=== PATIENT | female | born 1945 | race Caucasian/White ===

== ENCOUNTER 2019-08-18 02:00 | Inpatient (IN) | payer BC ==
[2019-08-18] VITALS (8 sets, daily range): BP systolic 99–135; BP diastolic 54–80
[~2019-08-18] VITALS: Ht 160 cm; Wt 58.5 kg
[2019-08-18] MEDS ORDERED: ATIVAN1 MG ORAL (02:22)
[2019-08-18] MEDS ORDERED: OMEPRAZOLE20 M3 ORAL (02:22)
[2019-08-18] MEDS ORDERED: Morphine Sulfate 4mg/ml Inj (IV USE ONLY) IVP ONE (02:45)
--- NOTE | 2019-08-18 03:17 | Emergency Room Report ---
History of Present Illness General Chief Complaint: Abdominal Pain Source: Patient Present Illness HPI 74-year-old female presents with left lower quadrant pain x3 days, patient with a history of diverticulosis presents with sharp pain that comes and goes no relieving factors severity is moderate, intermittent lasting minutes to hours, patient states that she has similar symptoms to her sister who may have diverticulitis, no fevers no chills Allergies: Coded Allergies: No Known Allergies (Unverified , 08/18/19) Patient History Past Medical History: see triage record Reviewed Nursing Documentation: PMH: Agreed; PSxH: Agreed Nursing Documentation-PMH Past Medical History: No History, Except For Hx Cardiac Problems: Yes - BRADYCARDIA Review of Systems All Other Systems: negative except mentioned in HPI Physical Exam Vital Signs Date Time Temp Pulse Resp B/P (MAP) Pulse Ox O2 Delivery O2 Flow Rate FiO2 08/18/19 02:17 97.7 69 22 135/80 (98) 99 Room Air Sp02 EP Interpretation: reviewed, normal General Appearance: well appearing, no apparent distress, alert Head: normocephalic, atraumatic Eyes: bilateral eye PERRL, bilateral eye EOMI ENT: uvula midline, moist mucus membranes Neck: supple, thyroid normal, supple/symm/no masses Respiratory: lungs clear, no respiratory distress, no retraction, no accessory muscle use Cardiovascular #1: normal peripheral pulses, regular rate, rhythm, no edema, no gallop, no murmur Gastrointestinal: soft, no guarding, no rebound, tenderness - Left lower quadrant tenderness Musculoskeletal: normal inspection Neurologic: alert, oriented x3 Psychiatric: mood/affect normal Skin: no rash, warm/dry Medical Decision Making Diagnostic Impression: Primary Impression: Diverticulitis ER Course 74-year-old female presents with left lower quadrant pain differential diagnosis includes appendicitis, diverticulitis. We will start IV antibiotics will start pain medication We will admit patient. CT scanner went down unable to get advanced imaging counseled patient she should stay for evaluation Patient given Deborahsyfela Patient admitted to Dr. Rangel Laboratory Tests Test 08/18/19 02:52 White Blood Count 5.2 K/UL (4.8-10.8) Red Blood Count 4.20 M/UL (4.20-5.40) Hemoglobin 12.3 G/DL (12.0-16.0) Hematocrit 37.6 % (37.0-47.0) Mean Corpuscular Volume 90 FL (80-99) Mean Corpuscular Hemoglobin 29.4 PG (27.0-31.0) Mean Corpuscular Hemoglobin Concent 32.8 G/DL (32.0-36.0) Red Cell Distribution Width 11.6 % (11.6-14.8) Platelet Count 236 K/UL (150-450) Mean Platelet Volume 8.5 FL (6.5-10.1) Neutrophils (%) (Auto) 49.0 % (45.0-75.0) Lymphocytes (%) (Auto) 37.9 % (20.0-45.0) Monocytes (%) (Auto) 10.2 % (1.0-10.0) H Eosinophils (%) (Auto) 1.9 % (0.0-3.0) Basophils (%) (Auto) 1.0 % (0.0-2.0) Sodium Level 144 MMOL/L (136-145) Potassium Level 4.2 MMOL/L (3.5-5.1) Chloride Level 107 MMOL/L (98-107) Carbon Dioxide Level 30 MMOL/L (21-32) Anion Gap 7 mmol/L (5-15) Blood Urea Nitrogen 19 mg/dL (7-18) H Creatinine 0.8 MG/DL (0.55-1.30) Estimate Glomerular Filtration Rate mL/min (>60) Glucose Level 99 MG/DL (74-106) Calcium Level 9.3 MG/DL (8.5-10.1) Total Bilirubin 0.2 MG/DL (0.2-1.0) Aspartate Amino Transferase (AST) 23 U/L (15-37) Alanine Aminotransferase (ALT) 26 U/L (12-78) Alkaline Phosphatase 98 U/L (46-116) Total Protein 7.5 G/DL (6.4-8.2) Albumin 3.7 G/DL (3.4-5.0) Globulin 3.8 g/dL Albumin/Globulin Ratio 1.0 (1.0-2.7) Lipase 215 U/L (73-393) Last Vital Signs Date Time Temp Pulse Resp B/P (MAP) Pulse Ox O2 Delivery O2 Flow Rate FiO2 08/18/19 02:17 97.7 69 22 135/80 (98) 99 Room Air Disposition: ADMITTED INPATIENT Condition: Stable Robin Bocanegra MD Aug 18, 2019 03:17
[2019-08-18 03:19] LABS: EOSINOPHILS % (AUTO) 1.9 % (0.0-3.0); HEMATOCRIT 37.6 % (37.0-47.0); HEMOGLOBIN 12.3 G/DL (12.0-16.0); LYMPHOCYTES % (AUTO) 37.9 % (20.0-45.0); MEAN CORPUSCULAR VOLUME 90 FL (80-99); MONOCYTES % (AUTO) 10.2 % (1.0-10.0); PLATELET COUNT 236 K/UL (150-450); RED CELL DISTRIBUTION WIDTH 11.6 % (11.6-14.8); WHITE BLOOD COUNT 5.2 K/UL (4.8-10.8)
[2019-08-18 03:29] LABS: ANION GAP 7 mmol/L (5-15); BLOOD UREA NITROGEN 19 mg/dL (7-18); CALCIUM 9.3 MG/DL (8.5-10.1); CARBON DIOXIDE 30 MMOL/L (21-32); CHLORIDE 107 MMOL/L (98-107); CREATININE 0.8 MG/DL (0.55-1.30); POTASSIUM 4.2 MMOL/L (3.5-5.1); SODIUM 144 MMOL/L (136-145)
[2019-08-18 03:33] LABS: ALANINE AMINOTRANSFERASE 26 U/L (12-78); ALBUMIN 3.7 G/DL (3.4-5.0); ALKALINE PHOSPHATASE 98 U/L (46-116); ASPARTATE AMINO TRANSFERASE 23 U/L (15-37); BILIRUBIN,TOTAL 0.2 MG/DL (0.2-1.0)
[2019-08-18] MEDS ORDERED: Omnipaque-300 100ml vial INJ PRN (03:45)
[2019-08-18] MEDS ORDERED: Piperacillin/Tazobactam 3.375 GM in NS 110 ML IVPB ONE (05:00)
[2019-08-18] MEDS ORDERED: LORazepam Inj 2mg/ml 1ml IV ONE (05:00)
[2019-08-18 05:26] LABS: APPEARANCE,URINE CLEAR; BILIRUBIN, URINE NEGATIVE (NEGATIVE); COLOR,URINE PALE YELLOW; GLUCOSE, URINE (UA) NEGATIVE (NEGATIVE); KETONES,URINE NEGATIVE (NEGATIVE); LEUKOCYTE ESTERASE ,URINE NEGATIVE (NEGATIVE); NITRITE,URINE NEGATIVE (NEGATIVE); PH,URINE 7 (4.5-8.0); PROTEIN,URINE NEGATIVE (NEGATIVE); UROBILINOGEN,URINE NORMAL MG/DL (0.0-1.0)
--- NOTE | 2019-08-18 06:09 | Diagnostic Imaging Report ---
EXAM: XR Left Ankle Complete, 3 or More Views CLINICAL HISTORY: PAIN TECHNIQUE: Frontal, lateral and oblique views of the left ankle. COMPARISON: No relevant prior studies available. FINDINGS: Bones/joints: Tiny bony fragments inferior to the lateral malleolus. Some demonstrate well-corticated margin. No acute fracture. No dislocation. Soft tissues: Moderate soft tissue swelling about the ankle, more pronounced laterally. IMPRESSION: 1. Suspect avulsion/chip fracture in the tip of lateral malleolus. 2. Moderate soft tissue swelling about the ankle
--- NOTE | 2019-08-18 08:57 | Diagnostic Imaging Report ---
EXAM: CT Abdomen and Pelvis With Intravenous Contrast CLINICAL HISTORY: ABD PAIN TECHNIQUE: Axial computed tomography images of the abdomen and pelvis with intravenous contrast. Sagittal and coronal reformatted images were created and reviewed. CTDI is 17.40 mGy and DLP is 908.70 mGy-cm. One or more of the following dose reduction techniques were used: automated exposure control, adjustment of the mA and/or kV according to patient size, use of iterative reconstruction technique. COMPARISON: No relevant prior studies available. FINDINGS: Lung bases: Unremarkable. No consolidation. No effusions. Mediastinum: Moderate to large size hiatal hernia. Fluid level in the distal esophagus, suggesting reflux. ABDOMEN: Liver: Unremarkable. No suspicious parenchymal lesions Gallbladder and bile ducts: Unremarkable. No calcified stones. No ductal dilation. Pancreas: Unremarkable. No mass. No ductal dilation. Spleen: Unremarkable. No splenomegaly. Adrenals: Unremarkable. No mass. Kidneys and ureters: Unremarkable. No solid mass. No hydronephrosis. Stomach and bowel: Moderate diffuse colonic fecal retention, suggesting constipation. No focal wall thickening in the colon or small bowel. No evidence of bowel obstruction. PELVIS: Appendix: No findings to suggest acute appendicitis. Bladder: Unremarkable. No visible stones. Reproductive: The uterus and ovaries are not visualized and may be surgically absent. ABDOMEN and PELVIS: Intraperitoneal space: Unremarkable. No free air. No significant fluid collection. Bones/joints: Right convex lumbar scoliotic curvature centered at L2. Multilevel degenerative changes throughout the visualized spine with disc space loss and endplate osteophytes. Degenerative changes in bilateral hip joints. No acute fracture. No dislocation. Soft tissues: Unremarkable. Vasculature: Atherosclerosis throughout the abdominal aorta and its proximal branches. No abdominal aortic aneurysm. Lymph nodes: Unremarkable. No enlarged lymph nodes. IMPRESSION: 1. Moderate to large size hiatal hernia. Fluid level in the distal esophagus, suggesting reflux. 2. Moderate diffuse colonic fecal retention, suggesting constipation. No focal wall thickening in the colon or small bowel. No evidence of bowel obstruction. 3. Right convex lumbar scoliotic curvature centered at L2 with associated multilevel degenerative changes throughout the spine.
[2019-08-18] MEDS ORDERED: Zolpidem 5mg tab ORAL PRN (14:00)
[2019-08-18] MEDS ORDERED: Miralax 17gm pkt ORAL PRN (14:00)
--- NOTE | 2019-08-18 14:07 | History & Physical ---
History and Physical History & Physicial HP dictated # [id number] Lemuel Rangel MD Aug 18, 2019 14:07
--- NOTE | 2019-08-18 16:05 | Diagnostic Imaging Report ---
Indication: Abdominal pain, right upper quadrant pain Technique: Alfaro-scale and duplex images of the upper abdomen were obtained Comparison: CT scan of earlier the same day Findings: Gallbladder is unremarkable, without stones, wall thickening, nor pericholecystic fluid. Common bile duct measures 6 mm in diameter. No intrahepatic biliary ductal dilatation. Liver demonstrates normal echogenicity. 14 mm hypoechoic mass with distal acoustic enhancement is seen in the right lobe. This may correspond to a smaller appearing lesion seen in retrospect on recent CT scan. Portal vein and hepatic veins are patent. Pancreas is unremarkable. Spleen is unremarkable. Left kidney measures 8.7 cm in length. Right kidney measures 10.5 cm length. Both kidneys demonstrate normal echogenicity. There is no hydronephrosis. No focal abnormality . Non-aneurysmal abdominal aorta . Impression: Hypoechoic right lobe liver lesion, slightly hemangioma Negative for gallstones or dilated bile ducts This essentially agrees with the preliminary interpretation provided overnight by [facility].
[2019-08-19] VITALS: BP 93/50
[2019-08-19 08:00] VITALS: BP 95/57
[2019-08-19 12:00] VITALS: BP 111/72
[2019-08-19 16:00] VITALS: BP 117/67
--- NOTE | 2019-08-19 18:30 | History and Physical Report ---
DATE OF ADMISSION: 08/18/2019 CHIEF COMPLAINT: Abdominal pain. HISTORY OF PRESENT ILLNESS: This is a 74-year-old female, who brought her sister for abdominal pain to the hospital. Even before she got here, she has had some abdominal pain herself and then when she was sitting in the emergency room, it became worse. Initially, she was thought that she had diverticulitis because of previous history of diverticulitis; however, the CT scan eventually showed no diverticulitis. The patient's pain is better, but she still gets on and off pain when she eats in her back. She has also history of gastroesophageal reflux disease. PAST MEDICAL HISTORY: History of hypertension, history of bradycardia, and history of arthritis and she needs hip replacement. MEDICATIONS: Reviewed in the EMR. SOCIAL HISTORY: The patient lives with her sister who is also in the hospital. No history of smoking or alcohol abuse. ALLERGIES: No known drug allergies. REVIEW OF SYSTEMS: As above. PHYSICAL EXAMINATION: VITAL SIGNS: Blood pressure 135/80, pulse 69, temperature 97.7, and respiratory rate is 22. HEENT: [place] conjunctivae. Anicteric sclerae. NECK: Supple. LUNGS: Clear to auscultation. HEART: S1, S2 without murmurs or rubs. ABDOMEN: Soft. There is some tenderness in the left upper quadrant. EXTREMITIES: No cyanosis or edema. LABORATORY FINDINGS: The CBC shows WBC of 5200, hematocrit 37.6, hemoglobin is 12.3, and platelets 236,000. Chemistry panel shows serum sodium of 144, potassium 4.2, chloride 107, CO2 of 30, BUN 19, creatinine 0.8, glucose 99, and calcium is 9.3. Lipase is 215. The UA shows 3+ blood. ASSESSMENT: This is a 74-year-old female, who is admitted with abdominal pain. She had previous history of diverticulitis, but the CT did not show any diverticulitis. She did have moderately large hiatal hernia and fluid level in distal esophagus suggesting reflux, moderate diffuse colonic fecal retention suggesting constipation, and no evidence of bowel obstruction. Because of the pain in the back, pancreatitis needs to be ruled out, also gallstones, and cholecystitis. PLAN: The patient will be on pain medication p.r.n. I will start the patient on Pepcid b.i.d. GI consultation will be obtained. The patient does not need antibiotics at this point. She will be on observation and she may require upper endoscopy. Lemuel Rangel M.D. DR: Scott JOB#: [id number] CC:
[2019-08-19 20:00] VITALS: BP 105/58
--- NOTE | 2019-08-19 21:58 | General Progress Note ---
Assessment/Plan Problem List: (1) Abdominal pain ICD Codes: R10.9 - Unspecified abdominal pain SNOMED: 05414469 (2) HTN (hypertension) ICD Codes: I10 - Essential (primary) hypertension SNOMED: 04889663 (3) Arthritis ICD Codes: M19.90 - Unspecified osteoarthritis, unspecified site SNOMED: 1897109 Assessment/Plan: continue pepcid pain meds diet as tolerated orthopedic consult Subjective Allergies: Coded Allergies: No Known Allergies (Unverified , 08/18/19) Subjective feels better Objective Last 24 Hour Vital Signs Date Time Temp Pulse Resp B/P (MAP) Pulse Ox O2 Delivery O2 Flow Rate FiO2 08/19/19 21:00 Room Air 08/19/19 20:00 98.3 74 20 105/58 (74) 97 08/19/19 16:00 98.7 63 18 117/67 (84) 98 08/19/19 12:00 98.0 76 18 111/72 (85) 96 08/19/19 10:43 Room Air 08/19/19 09:00 Room Air 08/19/19 08:00 98.7 81 19 95/57 (70) 96 08/19/19 00:00 97.0 64 17 93/50 (64) 95 Intake and Output 08/18/19 08/19/19 19:00 07:00 Intake Total 200 ml Output Total 240 ml Balance -40 ml Intake IV Total 200 ml Output Urine Total 240 ml # Voids 1 3 # Bowel Movements 1 Height (Feet): 5 Height (Inches): 3.00 Weight (Pounds): 129 Cardiovascular: normal rate Respiratory/Chest: lungs clear Abdomen: soft Lemuel Rangel MD Aug 19, 2019 21:58
--- NOTE | 2019-08-19 23:07 | General Progress Note ---
Assessment/Plan Assessment/Plan: Assessment - HH - GERD - abd pain - DM - HTN - anxiety Recommendations - po as tolerated - PPI - Outpatient EGD/Colon Thank you Rich Tom MD Subjective Allergies: Coded Allergies: No Known Allergies (Unverified , 08/18/19) Objective Last 24 Hour Vital Signs Date Time Temp Pulse Resp B/P (MAP) Pulse Ox O2 Delivery O2 Flow Rate FiO2 08/19/19 21:00 Room Air 08/19/19 20:00 98.3 74 20 105/58 (74) 97 08/19/19 16:00 98.7 63 18 117/67 (84) 98 08/19/19 12:00 98.0 76 18 111/72 (85) 96 08/19/19 10:43 Room Air 08/19/19 09:00 Room Air 08/19/19 08:00 98.7 81 19 95/57 (70) 96 08/19/19 00:00 97.0 64 17 93/50 (64) 95 Intake and Output 08/18/19 08/19/19 19:00 07:00 Intake Total 200 ml Output Total 240 ml Balance -40 ml Intake IV Total 200 ml Output Urine Total 240 ml # Voids 1 3 # Bowel Movements 1 Height (Feet): 5 Height (Inches): 3.00 Weight (Pounds): 129 Rich Tom MD Aug 19, 2019 23:07
[2019-08-19 23:24] VITALS: BP 114/61
--- NOTE | 2019-08-19 23:45 | Consultation ---
DATE OF CONSULTATION: 08/19/2019 GASTROENTEROLOGY CONSULTATION CONSULTING PHYSICIAN: Rich Tom M.D. CHIEF COMPLAINT: I was asked to see this patient by Dr. Lemuel Rangel for evaluation of abdominal issues. HISTORY OF PRESENT ILLNESS: The patient is a pleasant 74-year-old white woman who came to the hospital due to abdominal pain. The patient's states that abdominal pain has been there for about 3 to 4 days and she had a bout of vomiting last night although it was after she received morphine. She has had no diarrhea and no hematochezia. The patient states her last endoscopy and colonoscopy was about 4 or 5 years ago and the colonoscopy showed some polyps. The endoscopy showed some gastritis. She came to the emergency room at [facility] with the above complaints and imaging studies have not showed a clear cause for her symptoms. PAST MEDICAL HISTORY: History of hypertension, bradycardia, history of arthritis. MEDICATIONS: See the chart list for details. FAMILY HISTORY: Noncontributory, but the patient's sister does have diverticulitis and gastroesophageal reflux. SOCIAL HISTORY: The patient lives with his sister. She does not smoke or drink alcohol. REVIEW OF SYSTEMS: Otherwise negative. MEDICATIONS: Include lorazepam and omeprazole at home. PHYSICAL EXAMINATION: GENERAL: Pleasant, elderly woman, seen in her room with the sister at bedside. HEENT: Normocephalic and atraumatic. Sclerae anicteric. Oropharynx clear. NECK: Supple. CHEST: Clear to auscultation. CARDIOVASCULAR: Revealed a regular rate. ABDOMEN: Soft, nontender, and nondistended. EXTREMITIES: Revealed no edema. LABORATORY DATA: Noted. ASSESSMENT: This patient presents with a bout of abdominal discomfort, which now appears to be resolving or resolved. The patient can be treated conservatively. I advised the patient is to undergo an endoscopy and colonoscopy after discharge as outpatient. She was also advised to try a course of antacid regimen. RECOMMENDATIONS: 1. Resume oral diet as tolerated. 2. Outpatient followup. 3. Endoscopy and colonoscopy. Thank you for asking me to participate in the care of this patient. Rich Tom M.D. DR: RUEPRTO JOB#: [id number] CC:
[2019-08-20 08:00] VITALS: BP 112/64
[2019-08-20 12:00] VITALS: BP 103/62
--- NOTE | 2019-08-20 12:05 | Consultation ---
Consult Note Consult Note consult called re ankle pain and f/u on old fx pt following with Dr Rina Cevallos at [facility]. had twist injury in May with small chip fracture off lateral malleolus. xray show stable small chip fx. minimal pain and swelling. has been weightbearing without issue Assessment/Plan left ankle small chip fracture of lateral malleolus being following by Dr Louie Cevallos at [facility] no additional recs at this time. f/u Dr. Cevallos as outpt Silvana Mckee Aug 20, 2019 12:05
--- NOTE | 2019-08-20 13:19 | General Progress Note ---
Assessment/Plan Problem List: (1) Abdominal pain ICD Codes: R10.9 - Unspecified abdominal pain SNOMED: 30997411 (2) HTN (hypertension) ICD Codes: I10 - Essential (primary) hypertension SNOMED: 57425016 (3) Arthritis ICD Codes: M19.90 - Unspecified osteoarthritis, unspecified site SNOMED: 6514004 Assessment/Plan: cont as is DC today Subjective Allergies: Coded Allergies: No Known Allergies (Unverified , 08/18/19) Subjective feels better Objective Last 24 Hour Vital Signs Date Time Temp Pulse Resp B/P (MAP) Pulse Ox O2 Delivery O2 Flow Rate FiO2 08/20/19 12:00 98.1 72 18 103/62 (76) 97 08/20/19 09:00 Room Air 08/20/19 08:00 97.3 70 20 112/64 (80) 97 08/19/19 23:24 98.4 63 20 114/61 (78) 96 08/19/19 21:00 Room Air 08/19/19 20:00 98.3 74 20 105/58 (74) 97 08/19/19 16:00 98.7 63 18 117/67 (84) 98 Intake and Output 08/19/19 08/20/19 19:00 07:00 Intake Total 1000 ml 500 ml Balance 1000 ml 500 ml Intake Oral 500 ml Other 1000 ml # Voids 3 # Bowel Movements 1 Height (Feet): 5 Height (Inches): 3.00 Weight (Pounds): 129 Cardiovascular: normal rate Respiratory/Chest: lungs clear Abdomen: soft Lemuel Rangel MD Aug 20, 2019 13:19
--- NOTE | 2019-08-20 16:00 | Consultation ---
DATE OF CONSULTATION: 08/20/2019 ORTHOPEDIC CONSULTATION CONSULTING PHYSICIAN: Nino Kim M.D. REFERRING PHYSICIAN: Consult was called by Dr. Rangel for ankle pain. HISTORY OF PRESENT ILLNESS: She is a very pleasant 74-year-old female, who had a twist injury in May with a very small chip fracture of the lateral malleolus of left ankle. She has been following along with [facility] Coty [facility]. She is admitted to [place] for diverticulitis issues although Orthopedic consult was called to followup on x-rays. X-rays do show a stable and healing chip fracture of the lateral malleolus. The patient has been weightbearing, she has had minimal pain and some mild residual swelling. She has followup appointment with Dr. Cevallos in the upcoming weeks. PAST MEDICAL HISTORY: Diverticulosis, hypertension. PAST SURGICAL HISTORY: None. CURRENT MEDICATIONS: Please see chart. ALLERGIES: None. SOCIAL HISTORY: She does not drink or smoke. She is independent with all her activities. PHYSICAL EXAMINATION: GENERAL: She is a very pleasant woman, cooperative with examination. EXTREMITIES: She has very minimal swelling over the lateral aspect of the left ankle without any tenderness. She has excellent range of motion. She has been doing well in regular shoes. She is neurovascularly intact. X-RAY AND MRI: X-ray of the ankle are reviewed. There is a very small and stable chip fracture of the distal tip of lateral malleolus, mortise is intact. IMPRESSION: Left ankle small chip fracture of the tip of the lateral malleolus, nondisplaced. followed by Dr. Cevallos at [facility]. DISCUSSION: At this time, I discussed with the patient my findings. I recommend she continue to follow up with Dr. Cevallos at [facility]. At this point, she can continue weightbearing as tolerated and continue to see Dr. Cevallos on an outpatient basis for additional recommendation. Nino Kim M.D. Ofe Bhakta. DR: BARRY JOB#: [id number] CC: WILLIAM
--- NOTE | 2019-08-20 21:25 | General Progress Note ---
Assessment/Plan Assessment/Plan: Assessment - HH - GERD - abd pain - DM - HTN - anxiety Recommendations - po as tolerated - PPI - Outpatient EGD/Colon Subjective Allergies: Coded Allergies: No Known Allergies (Unverified , 08/18/19) Subjective Better today tolerating PO no vomiting Objective Last 24 Hour Vital Signs Date Time Temp Pulse Resp B/P (MAP) Pulse Ox O2 Delivery O2 Flow Rate FiO2 08/20/19 12:00 98.1 72 18 103/62 (76) 97 08/20/19 09:00 Room Air 08/20/19 08:00 97.3 70 20 112/64 (80) 97 08/19/19 23:24 98.4 63 20 114/61 (78) 96 Intake and Output 08/19/19 08/20/19 19:00 07:00 Intake Total 1000 ml 500 ml Balance 1000 ml 500 ml Intake Oral 500 ml Other 1000 ml # Voids 3 # Bowel Movements 1 Height (Feet): 5 Height (Inches): 3.00 Weight (Pounds): 129 Objective WDWN NCAT supple CTA RR abd soft ND NT no edema Nonforcal Rich Tom MD Aug 20, 2019 21:25
--- NOTE | 2019-08-21 09:53 | Discharge Summary ---
Discharge Summary Discharge Summary _ DATE OF ADMISSION: 08/18/2019 DATE OF DISCHARGE: 08/20/2019 DISCHARGED BY: Dr. Rangel REASON FOR ADMISSION: 74 years old female with past medical history of hypertension, bradycardia, arthritis, in need of hip replacement, presented to emergency department with left lower quadrant abdominal pain for 3 days. Patient reported prior history of diverticulosis. Pain reported as sharp, intermittent, moderate, lasting minutes to hour. Patient also reported back pain No fever or chills . Upon evaluation vital signs were stable. Laboratory work-up revealed no leukocytosis , stable hemoglobin and hematocrit. Stable electrolytes and renal parameters. Stable LFT and lipase. CT of the abdomen and pelvis revealed moderate to large sized hiatal hernia. Moderate diffuse colonic fecal retention, suggesting constipation. No evidence of bowel obstruction. No focal wall thickening in the colon or small bowel. Associated multilevel degenerative changes throughout the spine. Patient reported back pain and subsequently admitted to rule out pancreatitis , gallstones or cholecystitis. CONSULTANTS: GI specialist Dr. Tom orthopedic surgery Dr. Rogersjolly [facility] COURSE: Patient admitted to medical surgical floor. Pain management was addressed . Patient started on the GI prophylaxis with Pepcid. GI specialist followed. Abdominal ultrasound revealed no evidence of gallstones or dilated bile ducts. Per GI specialist patient will benefit from outpatient EGD and colonoscopy. Bowel regimen instituted. Patient had bowel movement. Pain was controlled. Diet was advanced, and patient was able to tolerate diet. Orthopedic surgeon seen and evaluated patient due to patient complaint of right ankle pain . X-ray of the right ankle revealed very small and stable chip fracture of the distal tip of lateral malleolus, mortise was intact. Orthopedic surgeon recommended continue follow-up with orthopedic surgeon Dr. Cevallos at [facility]. Orthopedic surgeon allow patient to weightbearing as tolerated. Fall precaution maintained. Pain management was addressed as needed, and pain was controlled. Blood pressure was closely monitored and remained stable . No need for antihypertensive medication at this time. Blood sugar was closely monitored and remained stable Patient clinically stabilized and was ready for discharge home. FINAL DIAGNOSES: Abdominal pain Constipation Hiatal hernia GERD Diabetes mellitus Hypertension Arthritis Left ankle small chip/avulsion fracture of the tip of the lateral malleolus, nondisplaced DISCHARGE MEDICATIONS: See Medication Reconciliation list. DISCHARGE INSTRUCTIONS: Patient was discharged home . Follow up with primary care provider in one week. I have been assigned to dictate discharge summary for this account. \ I was not involved in the patient's management. Hillary Leslie NP Aug 21, 2019 09:53
== END 2019-08-20 15:26 | disposition home or self-care (01) | DRG 392 ==
LOC: EMR 02:46 → 4E 05:37 → OBSVTOIN 05:37 → INTOOBSV 05:37 → EDBEDREQ 15:47
DX: K59.00 Constipation, unspecified (principal); K44.9 Diaphragmatic hernia without obstruction or gangrene; K21.9 Gastro-esophageal reflux disease without esophagitis; I10 Essential (primary) hypertension; E11.9 Type 2 diabetes mellitus without complications; M19.90 Unspecified osteoarthritis, unspecified site; S82.65XA Nondisplaced fracture of lateral malleolus of left fibula, initial encounter for closed fracture; X58.XXXA Exposure to other specified factors, initial encounter; F41.9 Anxiety disorder, unspecified
CPT/HCPCS: 36415; 74177; 76700; 80053; 81003; 83690; 85025; 96361; 96365; 96375; 99285; J2405; J7030